=== PATIENT | female | born 1975 | race African-American/Black ===

== ENCOUNTER → 2016-11-08 | Outpatient (CLI) | payer BC ==
[~2016-11-08] MED LIST: CHOL20009 PO; FOLI1TAB7 PO; METR500T PO; OMEG10007 PO; PREN1TAB29 PO
[2016-11-08 13:23] LABS: HEMATOCRIT 39.4 % (37-47); MEAN CELL VOLUME 87.9 fL (80-100); MEAN CORPUSCULAR HEMOGLOBIN 30.1 pg (25-34); MEAN CORPUSCULAR HGB CONC 34.3 g/dl (32-36); MEAN PLATELET VOLUME 10.9 fL (7.4-10.4); PLATELET COUNT 258 K/uL (130-400); RED BLOOD COUNT 4.48 M/uL (4.2-5.4); WHITE BLOOD COUNT 5.89 K/uL (4.8-10.8)
--- NOTE | 2016-11-13 12:00 | CODING QUERY MEDICAL NECESSITY ---
SUPPORTING DIAGNOSIS NEEDED Dr. Salcedo, A supporting diagnosis is required for the test/procedure performed on this patient in order for us to be reimbursed by the patient's insurance. Please provide a supporting diagnosis for the following test/procedure listed below next to the test name along with your signature. *If there is no additional diagnosis for this patient that would support the following test/procedure please document that below next to the test/procedure. Test(s)/Procedure(s) that require a supporting diagnosis: * ([id number]) VITAMIN D ASSAY DIAGNOSIS: DATE OF SERVICE: 11/08/16 Provider Signature: Date: Thank you Stevan Braun [facility] Information Management Once completed, please kindly fax back to [phone] For questions please call [phone]
== END | disposition home or self-care (01) ==
LOC: C.LAB 11:28
PROVIDERS: ATTEND Specialist
DX: Z31.41 Encounter for fertility testing (principal); Z11.3 Encounter for screening for infections with a predominantly sexual mode of transmission; Z11.4 Encounter for screening for human immunodeficiency virus [HIV]; Z11.59 Encounter for screening for other viral diseases; Z13.0 Encounter for screening for diseases of the blood and blood-forming organs and certain disorders involving the immune mechanism; Z13.21 Encounter for screening for nutritional disorder

== ENCOUNTER → 2016-11-16 | Outpatient (CLI) | payer BC ==
--- NOTE | 2016-11-16 11:23 | DIAGNOSTIC IMAGING REPORT ---
HYSTEROSALPINGOGRAM HISTORY: Infertility. FLUOROSCOPY TIME: 0.2 minutes. 3 images submitted. TECHNIQUE: The cervix was cannulated by the case packer and sealer-dietitian consultant and water soluble contrast was instilled into the uterus under fluoroscopic guidance. Multiple spot images were obtained. FINDINGS: The uterine cavity is normal in size, shape, and position. The fallopian tubes are patent and there is free peritoneal spill bilaterally. IMPRESSION: Normal hysterosalpingogram. Electronically signed by: Ray Watkins M.D. 11/16/2016 11:22 AM Dictated Date/Time: 11/16/2016 11:21 AM
== END | disposition home or self-care (01) ==
LOC: C.RAD 10:35
PROVIDERS: ATTEND Obstetrics & Gynecology
DX: Z31.41 Encounter for fertility testing (principal)

== ENCOUNTER → 2016-12-11 | Outpatient (CLI) | payer BC | END | disposition home or self-care (01) | LOC: C.LAB1850 08:48 | PROVIDERS: ATTEND Obstetrics & Gynecology | DX: O09.299 Supervision of pregnancy with other poor reproductive or obstetric history, unspecified trimester (principal); Z3A.00 Weeks of gestation of pregnancy not specified ==

== ENCOUNTER → 2016-12-29 | Outpatient (CLI) | payer BC | END | disposition home or self-care (01) | LOC: C.LAB1850 13:32 | PROVIDERS: ATTEND Obstetrics & Gynecology | DX: O20.0 Threatened abortion (principal) ==

== ENCOUNTER → 2017-01-03 | Outpatient (CLI) | payer BC | END | disposition home or self-care (01) | LOC: C.LAB1850 11:33 | PROVIDERS: ATTEND Obstetrics & Gynecology | DX: O20.0 Threatened abortion (principal) ==

== ENCOUNTER 2017-01-23 07:23 | Day surgery (SDC) | payer BC ==
[2017-01-19 16:27] VITALS: BMI 19.0
--- NOTE | 2017-01-22 15:44 | HISTORY & PHYSICAL EXAMINATION ---
DATE OF ADMISSION: 01/23/2017 HISTORY: The patient presents for D&E for retained products of conception. The patient had a long course, but was eventually diagnosed with a missed AB. She eventually determined that she would take Cytotec as the measured only approximately 6 weeks. She underwent the Cytotec and she passed what appeared to be a sac, and her heavy bleeding stopped. Ultrasound shows that she likely has retained products of conception with an endometrium measuring 20.9 mm and very vascular and filled with debris. Ovaries are normal bilaterally. We discussed the options including expectant management, another attempt of Cytotec and D&E. I obtained the opinion of Dr. Padilla who recommended that she have a D&E. I also obtained the opinion of Dr. Salcedo from [facility], who also recommended that she have a D&E. The patient is now willing to proceed with D&E. She continues to have very minimal bleeding or cramping. PAST MEDICAL HISTORY: Significant for infertility, habitual miscarriage; but she is otherwise healthy, denying thyroid disease, asthma, heart disease, heart murmur, diabetes, kidney or liver problems. PAST SURGICAL HISTORY: Includes wisdom teeth removal and a surgically induced . FAMILY HISTORY: Noncontributory. SOCIAL HISTORY: The patient denies tobacco, alcohol or drug use. She has been accompanied to a revisit with the father of the baby. PHYSICAL EXAMINATION: GENERAL: This is a well-developed, well-nourished white female in no acute distress. VITAL SIGNS: Blood pressure 94/60, weight 114.6 pounds, height 5 feet 4.75 inches. NECK: Supple without thyromegaly or lymphadenopathy. CHEST: Clear to auscultation bilaterally. CARDIOVASCULAR: Regular rate and rhythm without murmurs, gallops or rubs. ABDOMEN: Soft, nontender, nondistended. BACK: Without costovertebral angle tenderness. EXTREMITIES: Benign. ASSESSMENT: This is a missed treated with Cytotec, that now has passed a sac but has likely retained products of conception. Given the risk of persistence and infection, both Dr. Padilla, Dr. Salcedo and I recommend she proceed with D&E. We did discuss the possibility of attempting Cytotec to see if the uterus would empty out further, she declines this. The risks of the surgery were discussed with patient including risks of anesthesia, bleeding requiring transfusion, infection, poor wound healing, damage to surrounding structures including bowel, bladder, vessels, nerves and ureters with need for further surgery, hospitalization or intervention. We discussed in detail the possibility of scarring resulting in Asherman syndrome as well as the 1% chance of uterine perforation with need for further surgery. The patient is quite concerned about these options limiting her fertility. I will be doing the procedure under ultrasound guidance so as to make sure that all tissue was removed to the best of my ability, so we do not need to do multiple procedures and additionally I will be very cautious with curettage and trying to prevent perforation. The patient does understand that both of these risks of this procedure and is willing to proceed. The other risks of surgery were discussed with patient including the risk of heart attack, blood clot, stroke or . Questions were asked and answered. Consent was reviewed and signed and we plan to proceed with surgery on Sunday, the .
[~2017-01-23] VITALS: Ht 166.4 cm; Wt 53.2 kg
[~2017-01-23 07:23] MED LIST changes: +DOXYCYCLINE HYCLATE 100 MG CAP PO SCH; +LACTATED RINGER'S 1000ML 1,000 ML IV SCH; -METR500T PO
[2017-01-23] MEDS ORDERED: MIDAZOLAM HCL 1 MG/ML 2ML VIAL ONE (07:37)
[2017-01-23] MEDS ORDERED: FENTANYL CITRATE INJ 50 MCG/1 ML 2 ML VIAL ONE (07:37)
[2017-01-23 08:08] VITALS: BP 110/61; PULSE 77; TEMP 36.6; O2SAT 100; Ht 166.4 cm; Wt 53.2 kg
--- NOTE | 2017-01-23 08:35 | History & Physical Bridge Note ---
H&P Re-Evaluation Bridge Note: I have examined the patient, reviewed the History & Physical and in the interval since the performance of the History & Physical I have noted the following changes of clinical significance: No changes noted
[2017-01-23] MEDS ORDERED: DEXAMETHASONE SOD INJ 4 MG/ML VIAL ONE (09:08)
[2017-01-23] MEDS ORDERED: LIDOCAINE HCL 2% 2 ML VIAL (20MG/ML) ONE (09:08)
[2017-01-23] MEDS ORDERED: ONDANSETRON INJ 2 MG/ML 2 ML VIAL ONE (09:08)
[2017-01-23] MEDS ORDERED: PROPOFOL IV EMULSION 10 MG/ML 20 ML VIAL IV ONE (09:08)
[2017-01-23] MEDS ORDERED: LACTATED RINGER'S 1000ML 1,000 ML IV SCH (09:18)
--- NOTE | 2017-01-23 09:18 | [facility] Post Operative Brief Note ---
Immediate Operative Summary Operative Date Jan 23, 2017. Pre-Operative Diagnosis Retained products of conception Post-Operative Diagnosis Same Procedure(s) Performed Dilation and Evacuation with Guided Ultrasound Surgeon Dr Harris Night Patrol Inspector Surgeon(s) none Estimated Blood Loss 50ml Findings uterus sounded to 6-7cm, pocs removed under ultrasound guidance. at the end of the procedure very thin lining of 4mm noted. Fluids (cc crystalloids) 800cc Specimens A. Products of conception B. endometrial lining currettings Drains none Anesthesia lma Complication(s) None Disposition Recovery Room / PACU
[2017-01-23] MEDS ORDERED: METR500T PO (09:21)
--- NOTE | 2017-01-23 09:22 | Discharge Instructions ---
Discharge Instructions Date of Service Jan 23, 2017. Visit Reason for Visit: Retained Products Of Conception Following Discharge Discharge Diagnosis / Problem: s/p dilation and evacuation of retained producted of conception. Discharge Goals Goal(s): Specific goals Activity Recommendations Activity Limitations: per Instructions/Follow-up section Anesthesia . Post Anesthesia Instructions: If you have had General Anesthesia or IV Sedation: * Do not drive today. * Resume driving when surgeon permits. * Do not make important decisions or sign legal documents today. * Call surgeon for: 1. Temperature elevations greater than 101 degrees F. 2. Uncontrollable pain. 3. Excessive bleeding. 4. Persistent nausea and vomiting. 5. Medication intolerance (nausea, vomiting or rash). * For nausea and vomiting use only clear liquids such as: tea, soda, bouillon until nausea subsides, then gradually increase diet as tolerated. * If you have any concerns or questions, call your surgeon's office. If physician is unavailable and it is an emergency, call 911 or go to the nearest emergency room. . Instructions / Follow-Up Instructions / Follow-Up ACTIVITY RECOMMENDATIONS: * Avoid tampons, douching, hot tubs, pools, and intercourse until bleeding has stopped. * May shower as usual. * No strenuous activity for 24-48 hours. After 24-48 hours, you may do anything you feel like doing (driving and sports are okay). SPECIAL CARE INSTRUCTIONS: Special Diet: * Mild nausea may occur in the immediate post-operative period. * Take clear liquids such as tea, cola or bouillon until all nausea has subsided; you may then resume your normal diet. Special Care: * Light bleeding and vaginal spotting can last from a few days to 3-4 weeks. Call your doctor if bleeding becomes heavier than the heaviest part of your period. * Check your temperature twice a day for one week. If it goes above 100.4 degrees Fahrenheit (38.0 Celsius), notify your doctor. * Call your doctor's office for an appointment for 4 weeks after your surgery. FOLLOW-UP VISIT: Call your doctor's office for an appointment for 4 weeks after your surgery. Diet Recommendations Recommended Home Diet: no limitations, resume previous diet Procedures Procedures Performed: Dilation and Evacuation with Guided Ultrasound Pending Studies Studies pending at discharge: no Medical Emergencies . Who to Call and When: Medical Emergencies: If at any time you feel your situation is an emergency, please call 911 immediately. . Non-Emergent Contact Non-Emergency issues call your: Advanced Practice Provider . . "Provider Documentation" section prepared by Rosalba Harris. .
[2017-01-23] MEDS ORDERED: IBUPROFEN 600 MG TAB PO PRN (09:30)
[2017-01-23] MEDS ORDERED: ACETAMINOPHEN 325 MG TAB PO PRN (09:30)
[2017-01-23] MEDS ORDERED: KETOROLAC TROMETHAMINE 30 MG/ML VIAL IV. PRN ×3 (09:30→09:45)
[2017-01-23] MEDS ORDERED: IBUPROFEN 200 MG TAB PO PRN (09:30)
[2017-01-23] MEDS ORDERED: ACETAMINOPHEN 650 MG SUPP PR PRN (09:30)
[2017-01-23] MEDS ORDERED: MoRPHine SULFATE 2 MG/ML CARP IV PRN ×2 (09:30)
[2017-01-23] MEDS ORDERED: OXYCODONE/ACETAMINOPHEN 5-325 TAB PO PRN ×2 (09:30)
[2017-01-23] MEDS ORDERED: MoRPHine SULFATE 4 MG/ML 1 ML CARP\\VIAL IV PRN (09:30)
--- NOTE | 2017-01-23 09:36 | OPERATIVE REPORT ---
DATE OF OPERATION: 01/23/2017 PREOPERATIVE DIAGNOSIS: Retained products of conception, status post Cytotec treatment of missed . POSTOPERATIVE DIAGNOSIS: Same. PROCEDURE: Dilation and evacuation. SURGEON: Rosalba Harris MD ANESTHESIA: General per laryngeal mask. ESTIMATED BLOOD LOSS: 50 mL. FLUIDS: 800 mL of IV fluids. URINE OUTPUT: Approximately 100 mL of clear yellow urine drained from the bladder at the end of the procedure. INDICATIONS FOR PROCEDURE: Eli is a 5, para 0-0-2-0 who had a missed AB. She underwent Cytotec for treatment, past the sac but unfortunately had retained products of conception, so presents for removal. FINDINGS: Uterus sounded to 6-7 cm. On ultrasound, there were retained products of conception noticed in the uterus and at the end of the procedure the lining which was quite thick prior to the procedure was now 4 mm. COMPLICATIONS: None. DRAINS: None. DISPOSITION: To recovery room in stable condition. DESCRIPTION OF PROCEDURE: The patient was taken to the operating room where she was identified verbally and by bracelet. She was placed in dorsal supine position on the operating table where general anesthesia was induced without difficulty. She was then placed in dorsal lithotomy position in [facility]-cane stirrups and prepped and draped in normal sterile fashion. Timeout was held identifying correct patient, procedure and positioning. The bladder was drained of urine and exam under anesthesia revealed an approximately 6-week size midline mobile uterus. The bladder was drained of urine. A weighted speculum was placed in the posterior vagina. The anterior lip of the cervix was grasped with a single tooth tenaculum. Uterus sounded to 6-7 cm, dilated to a #25 Heather dilator. We initially started with a 6 mm flexible suction curette. This was not really doing her job so we dilated to a #29 Hegar dilator and an 8 mm suction curette was placed to the uterus and then under direct visualization via ultrasound, the products of conception were removed until the lining appeared thin and measured at its thickest 4 mm. The procedure was thus then terminated after a gentle curettage was done to assure no further products removed. All instruments were then removed from the vagina. Hemostasis was noted to be excellent. All sponge, lap and needle counts were correct x2. The patient tolerated the procedure well and was taken to the recovery room in stable condition. I attest to the content of the Intraoperative Record and any orders documented therein. Any exception s are noted below.
[2017-01-23] MEDS ORDERED: FENTANYL CITRATE INJ 50 MCG/1 ML 2 ML VIAL IV PRN (09:45)
[2017-01-23] MEDS ORDERED: DOXYCYCLINE HYCLATE 100 MG CAP PO SCH (09:45)
[2017-01-23] MEDS ORDERED: ATROPINE SULFATE 0.1 MG/ML 5ML SYR IV PRN (09:45)
[2017-01-23] MEDS ORDERED: ONDANSETRON INJ 2 MG/ML 2 ML VIAL IV PRN (09:45)
--- NOTE | 2017-01-23 09:57 | Anesthesiology Progress Note ---
Anesthesia Post Op Note Date & Time Jan 23, 2017 at 09:57 Vital Signs Pain Intensity: 3 Vital Signs Past 12 Hours Date Time Temp Pulse Resp B/P (MAP) Pulse Ox O2 Delivery O2 Flow Rate FiO2 01/23/17 09:45 62 12 93/61 99 Room Air 01/23/17 09:35 62 12 94/56 100 Oxymask 10 01/23/17 09:25 62 12 95/56 100 Oxymask 10 01/23/17 09:18 36.9 62 12 89/51 100 Oxymask 10 01/23/17 08:08 36.6 77 16 110/61 (77) 100 Room Air Notes Mental Status: alert / awake / arousable, participated in evaluation Pt Amnestic to Procedure: Yes Nausea / Vomiting: adequately controlled Pain: adequately controlled Airway Patency, RR, SpO2: stable & adequate BP & HR: stable & adequate Hydration State: stable & adequate Anesthetic Complications: no major complications apparent
[2017-01-23 10:02] LABS: BASO % 0.4 %; BASO ABS # 0.02 K/uL (0-0.2); EOS % 2.2 %; HEMATOCRIT 34.2 % (37-47); LYMPH % 37.3 %; LYMPH ABS # 2.05 K/uL (1.2-3.4); MEAN CELL VOLUME 88.4 fL (80-100); MEAN CORPUSCULAR HEMOGLOBIN 30.5 pg (25-34); MEAN PLATELET VOLUME 11.5 fL (7.4-10.4); MONO % 8.7 %; NEUT % 51.4 %; PLATELET COUNT 235 K/uL (130-400); RED BLOOD COUNT 3.87 M/uL (4.2-5.4); WHITE BLOOD COUNT 5.49 K/uL (4.8-10.8)
[2017-01-23 10:04] LABS: COMPLETE YES; MEAN CORPUSCULAR HGB CONC 34.5 g/dl (32-36)
[2017-01-23 10:07] VITALS: BP 93/53; PULSE 58; TEMP 36.6; O2SAT 96
[2017-01-23 10:37] VITALS: BP 100/56; PULSE 56; O2SAT 98
[2017-01-23 11:07] VITALS: BP 100/61; PULSE 58; TEMP 36.5; O2SAT 99
== END 2017-01-23 11:07 | disposition home or self-care (01) ==
LOC: C.ACU 07:23
PROVIDERS: ATTEND Obstetrics & Gynecology
DX: O02.1 Missed abortion (principal)

== ENCOUNTER → 2017-02-28 | Outpatient (CLI) | payer BC ==
[~2017-02-28] MED LIST changes: -DOXYCYCLINE HYCLATE 100 MG CAP PO SCH; -LACTATED RINGER'S 1000ML 1,000 ML IV SCH
== END | disposition home or self-care (01) ==
LOC: C.LAB1850 11:55
PROVIDERS: ATTEND Specialist
DX: O09.00 Supervision of pregnancy with history of infertility, unspecified trimester (principal)

== ENCOUNTER → 2017-04-05 | Outpatient (CLI) | payer BC ==
[~2017-04-05] MED LIST changes: -FOLI1TAB7 PO; +FOLI1TAB8 PO
== END | disposition home or self-care (01) ==
LOC: C.LAB1850 10:15
PROVIDERS: ATTEND Specialist
DX: Z31.41 Encounter for fertility testing (principal); O09.00 Supervision of pregnancy with history of infertility, unspecified trimester; Z3A.00 Weeks of gestation of pregnancy not specified

== ENCOUNTER → 2017-06-07 | Outpatient (CLI) | payer OTHER | END | disposition home or self-care (01) | LOC: C.LAB1850 10:17 | PROVIDERS: ATTEND Specialist | DX: Z31.41 Encounter for fertility testing (principal); O09.00 Supervision of pregnancy with history of infertility, unspecified trimester ==

== ENCOUNTER → 2017-06-13 | Outpatient (CLI) | payer OTHER | END | disposition home or self-care (01) | LOC: C.LAB1850 09:19 | PROVIDERS: ATTEND Specialist | DX: Z31.41 Encounter for fertility testing (principal) ==

== ENCOUNTER → 2017-06-14 | Outpatient (CLI) | payer OTHER | END | disposition home or self-care (01) | LOC: C.LAB1850 11:23 | PROVIDERS: ATTEND Specialist | DX: Z31.41 Encounter for fertility testing (principal) ==

== ENCOUNTER → 2017-07-20 | Outpatient (CLI) | payer OTHER | END | disposition home or self-care (01) | LOC: C.LAB1850 08:24 | PROVIDERS: ATTEND Specialist | DX: Z31.41 Encounter for fertility testing (principal); O09.00 Supervision of pregnancy with history of infertility, unspecified trimester ==

== ENCOUNTER → 2017-08-03 | Outpatient (CLI) | payer OTHER | END | disposition home or self-care (01) | LOC: C.LAB1850 10:59 | PROVIDERS: ATTEND Specialist | DX: N97.9 Female infertility, unspecified (principal) ==

== ENCOUNTER → 2017-08-28 | Outpatient (CLI) | payer OTHER | END | disposition home or self-care (01) | LOC: C.LABBC 07:46 | PROVIDERS: ATTEND Specialist | DX: O09.00 Supervision of pregnancy with history of infertility, unspecified trimester (principal); Z3A.00 Weeks of gestation of pregnancy not specified ==

== ENCOUNTER → 2017-11-06 | Outpatient (CLI) | payer OTHER | END | disposition home or self-care (01) | LOC: C.LAB1850 08:48 | PROVIDERS: ATTEND Specialist | DX: Z31.41 Encounter for fertility testing (principal) ==

== ENCOUNTER → 2017-11-19 | Outpatient (CLI) | payer OTHER ==
[2017-11-19 13:48] LABS: HEP C IGG 13 YRS+OLDER_RFLX NEG (NEG)
== END | disposition home or self-care (01) ==
LOC: C.LABBC 11:09
PROVIDERS: ATTEND Specialist
DX: Z11.3 Encounter for screening for infections with a predominantly sexual mode of transmission (principal); Z11.4 Encounter for screening for human immunodeficiency virus [HIV]; Z11.59 Encounter for screening for other viral diseases

== ENCOUNTER → 2017-12-06 | Outpatient (CLI) | payer OTHER | END | disposition home or self-care (01) | LOC: C.LAB1850 08:39 | PROVIDERS: ATTEND Specialist | DX: O09.00 Supervision of pregnancy with history of infertility, unspecified trimester (principal); Z3A.00 Weeks of gestation of pregnancy not specified ==

== ENCOUNTER → 2017-12-10 | Outpatient (CLI) | payer OTHER | END | disposition home or self-care (01) | LOC: C.LABBC 08:37 | PROVIDERS: ATTEND Specialist | DX: O09.00 Supervision of pregnancy with history of infertility, unspecified trimester (principal); Z3A.00 Weeks of gestation of pregnancy not specified ==

== ENCOUNTER 2018-08-16 07:37 | Inpatient (IN) ==
[2018-08-16] MEDS ORDERED: OXYTOCIN 30 UNITS/500 ML BAG IV PRN ×2 (08:18→08:23)
[2018-08-16] MEDS ORDERED: LACTATED RINGER'S 1,000 ML IV PRN ×3 (08:18→17:13)
--- NOTE | 2018-08-16 08:40 | History & Physical Report ---
Date of Service August 16, 2018 Assessment & Plan (1) Encounter for induction of labor: Ms. Chapman is a 43yo with IOL at 40.5 weeks for postdates. IVF , Advanced maternal age. GBS- -Pitocin, NPO/clears, fluids -Anticipate History of Present Illness Chief Complaint: Induction of labor Primary Care Provider: Mercedes [place] MD Ms. Chapman is a 43yo with IOL at 40.5 weeks for postdates. SAMSON of 08/11 by 1st trimester US. complicated by AMA, IVF. Weekly NSTs and AFIs from 36 weeks, with 1 episode of a prolonged decel requiring hospital monitoring on 08/12. O+, Antibody NEGATIVE. Rubella immune, HbsAg NEGATIVE, HIV-. 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; 1st attempt unsuccessful Therapeutic 2004;2011 Therapeutic in second trimester 2016;multiple cardiac anomalies [place] teeth removed Surgical History History of colposcopy 2004 Social History Preferred Language: Macanese Communication Ability: Effective Beliefs That Will Affect Care: None marital status: Single Current Living Situation: Alone Other Information That Helps Us Care for You: No Feels Safe at Home: Yes Safety Concerns: Feels Safe At This Time Smoking Status: Never smoker Hx Alcohol Use: No Hx Substance Use: No Review of Systems no fever and no chills no dyspnea no chest pain, no palpitations, no edema and no calf pain no nausea and no vomiting no headache(s) Physical Exam Respiratory: normal respiratory effort, lungs clear to auscultation Cardiovascular: Rate/Rhythm: regular rate and regular rhythm Genitourinary: OB Exam Abdomen: + fundal height, + vertex and + posterior Manual OB Exam: + cervical dilation (Exam done by Dr. Chaputa-Hess) 3 cm, + cervical effacement 60% and + station -1 Results & Data Vital Signs (Past 12 Hours) Vital Signs Temp Pulse Resp BP 08/16/18 07:47 36.7 C 82 20 123/76 08/16/18 07:44 82 123/76 Laboratory Results Laboratory Results - last 24 hr 08/16/18 08:47 WBC 11.93 H RBC 3.74 L Hgb 11.9 L Hct 33.2 L MCV 88.8 MCH 31.8 MCHC 35.8 RDW Std Deviation 42.9 RDW Coeff of Jake 13.2 Plt Count 178 MPV 12.1 H Medications Administered Home Medications PNV cmb#95-ferrous fumarate-FA [] 1 tab PO DAILY 08/12/18 [History Confirmed 08/15/18] folic acid 1 mg PO TID 08/12/18 [History Confirmed 08/15/18] omega 1-mrx-dvg-fish oil [Fish Oil] 1 cap PO DAILY 08/12/18 [History Confirmed 08/15/18] Active Medications Lactated Ringer's (Lr) 1,000 mls @ 999 mls/hr IV .Q1H1M PRN PRN Reason: Pre-Anesthesia Stop: 09/15/18 08:17 Lactated Ringer's (Lr) 1,000 mls @ 125 mls/hr IV .Q8H INDY Stop: 08/18/18 08:29 Last Admin: 08/16/18 09:14 Dose: 125 mls/hr Documented by: Oxytocin (Pitocin) 30 units in 500 mls @ 333.333 mls/hr IV .Q1H30M PRN; Protocol PRN Reason: Bleeding Control Stop: 09/15/18 08:17 Lactated Ringer's (Lr) 1,000 mls @ 999 mls/hr IV .Q1H1M PRN PRN Reason: Tachysystole Stop: 08/18/18 08:22 Oxytocin (Pitocin) 30 units in 500 mls @ 1 mls/hr IV .Q24H PRN; Protocol PRN Reason: Labor Induction/Augmentation Stop: 08/18/18 08:22 Last Admin: 08/16/18 09:15 Dose: 0.06 units/hr, 1 mls/hr Documented by: Supervising Physician Co-Signing Physician Notes Resident Physician Supervision Note: I have seen and examined the patient. I discussed the case with the resident and agree with the findings and plan as documented in the note. Any exceptions or clarifications are listed here: 43yo @ 40 08/20 for IOL for postdates. is IVF conception, donor egg/sperm. Hassan balloon last night, will give pitocin and plan for AROM when head well applied. Documented By: DO MAHIN Younger
[2018-08-16 08:58] LABS: Hematocrit (blood only) 33.2 % (37-47); Hemoglobin 11.9 g/dL (12.0-16.0); Mean Corpuscular Volume 88.8 fL (80-100); Mean Platelet Volume 12.1 fL (7.4-10.4); Platelet Count 178 K/uL (130-400); RDW Coefficient of Variation 13.2 % (11.5-14.5); RDW Standard Deviation 42.9 fL (36.4-46.3); Red Blood Count 3.74 M/uL (4.2-5.4); White Blood Count 11.93 K/uL (4.8-10.8)
[2018-08-16 08:59] LABS: Mean Corpuscular Hgb Conc 35.8 g/dL (32-36)
[2018-08-16] MEDS: LACTATED RINGER'S 1,000 ML IV SCH ×2 (09:14→20:57)
--- NOTE | 2018-08-16 13:57 | Obstetrical Progress Note ---
Date of Service August 16, 2018 Subjective Comfortable. Attempted AROM, cervix 80/-3. Head felt too high - will continue pitocin to bring head down into pelvis prior to AROM. FHT Cat 1. [place] Q2. Results & Data Vital Signs (Past 12 Hours) Vital Signs Temp Pulse Resp BP 08/16/18 12:30 18 08/16/18 12:04 97.9 F 67 20 118/71 08/16/18 10:40 89 20 129/75 08/16/18 07:47 98.1 F 82 20 123/76 08/16/18 07:44 82 123/76
[2018-08-16] MEDS ORDERED: BUPIVACAINE 0.25% 30 ML VIAL ONE (15:43)
[2018-08-16] MEDS ORDERED: fentaNYL citrate 100 MCG/2 ML VIAL ONE (15:43)
[2018-08-16] MEDS ORDERED: ePHEDrine sulfate 50 MG/ML AMP ONE (15:43)
[2018-08-16] MEDS ORDERED: fentaNYL 2MCG/ML ROPIV 1.25MG/ML 100 ML BAG EPI ONE (15:44)
--- NOTE | 2018-08-16 16:00 | Anesthesiology Consultation ---
Date of Service August 16, 2018 Assessment & Plan (1) Term : Chart Review Chart Review: Acceptable Risk for Labor Epidural History Height/Weight Height: 5 ft 5 in Weight: 146 kg Allergies Allergy/AdvReac Type Severity Reaction Status Date / Time No Known Allergies Allergy Verified 08/16/18 09:38 Medications Home Medications Medication Instructions Recorded Confirmed Last Taken PNV cmb#95-ferrous fumarate-FA 1 tab PO DAILY 08/12/18 08/16/18 08/16/18 07:30 [] folic acid 1 mg PO TID 08/12/18 08/16/18 08/16/18 07:30 omega 5-jiv-ifs-fish oil [Fish Oil] 1 cap PO DAILY 08/12/18 08/16/18 08/16/18 07:30 Active Medications Generic Name Dose Route Start Last Admin Trade Name Freq PRN Reason Stop Dose Admin Lactated Ringer's 1,000 mls @ 999 mls/hr 08/16/18 08:18 08/16/18 15:52 Lr IV 09/15/18 08:17 999 mls/hr .Q1H1M PRN Administration Pre-Anesthesia Lactated Ringer's 1,000 mls @ 125 mls/hr 08/16/18 08:30 08/16/18 15:53 Lr IV 08/18/18 08:29 Infused .Q8H INDY Infusion Oxytocin 30 units in 500 mls @ 9 mls/hr 08/16/18 08:23 08/16/18 13:45 Pitocin IV 08/18/18 08:22 0.54 units/hr .Q24H PRN 9 mls/hr Labor Induction/Augmentation Titration Protocol 0.54 UNITS/HR Past Medical History Medical History 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
[2018-08-16] MEDS ORDERED: NALOXONE HCL 0.4 MG/1 ML VIAL/CARP IV PRN (17:13)
[2018-08-16] MEDS ORDERED: ePHEDrine sulfate 50 MG/ML AMP IV PRN (17:13)
[2018-08-16] MEDS ORDERED: fentaNYL 2MCG/ML ROPIV 1.25MG/ML 100 ML BAG EPI PRN (17:13)
[2018-08-16] MEDS ORDERED: NALOXONE HCL 1 MG in SODIUM CHLORIDE 0.9% 1000ML 1,000 ML IV PRN (17:13)
--- NOTE | 2018-08-16 17:53 | Obstetrical Progress Note ---
Date of Service August 16, 2018 Subjective Comfortable with epidural. FHT Cat 1, [place] Q 2 SVE 4/90/-2 AROM clear fluid Results & Data Vital Signs (Past 12 Hours) Vital Signs Temp Pulse Resp BP Pulse Ox 08/16/18 17:51 72 112/70 08/16/18 17:49 71 100 08/16/18 17:46 92 H 113/64 08/16/18 17:44 94 H 100 08/16/18 17:42 94 H 117/79 08/16/18 17:39 85 100 08/16/18 17:36 90 116/77 08/16/18 17:34 88 100 08/16/18 17:33 78 111/71 08/16/18 17:29 85 100 08/16/18 17:26 82 105/67 08/16/18 17:24 73 100 08/16/18 17:21 75 111/64 08/16/18 17:19 76 100 08/16/18 17:17 79 108/63 08/16/18 17:14 77 100 08/16/18 17:13 80 110/65 08/16/18 17:09 79 100 08/16/18 17:06 84 114/59 L 08/16/18 17:04 86 100 08/16/18 17:03 76 108/62 08/16/18 16:59 81 100 08/16/18 16:57 89 129/60 08/16/18 16:56 87 92 08/16/18 16:54 86 100 08/16/18 16:52 78 104/55 L 08/16/18 16:49 85 100 08/16/18 16:47 73 102/52 L 08/16/18 16:44 74 100 08/16/18 16:42 74 92/59 L 08/16/18 16:39 78 100 08/16/18 16:37 72 109/54 L 08/16/18 16:34 77 100 08/16/18 16:32 77 111/53 L 08/16/18 16:29 73 100 08/16/18 16:25 98.1 F 70 22 103/54 L 08/16/18 16:24 74 100 08/16/18 16:23 71 111/54 L 08/16/18 16:21 71 102/53 L 08/16/18 16:19 73 110/56 L 100 08/16/18 16:16 69 123/70 08/16/18 16:14 74 100 08/16/18 16:09 81 100 08/16/18 16:04 81 100 08/16/18 12:30 18 08/16/18 12:04 97.9 F 67 20 118/71 08/16/18 10:40 89 20 129/75 08/16/18 07:47 98.1 F 82 20 123/76 08/16/18 07:44 82 123/76
[2018-08-16] MEDS ORDERED: ONDANSETRON INJ 2 MG/ML 2 ML VIAL IV PRN (19:10)
--- NOTE | 2018-08-17 01:11 | Procedure Note ---
Vaginal Delivery Summary Date of Service August 17, 2018 Vaginal Delivery Summary Predelivery diagnoses: 43yo @ 40 5/7, post-dates , advanced maternal age, conception by IVF Postdelivery diagnoses: same + avulsion of umbilical cord Procedure: Spontaneous vaginal delivery, manual extraction of placenta, collection of cord blood for private banking Surgeon: Anna Wright DO Complications: None Estimated blood loss: 400ml Findings: Viable female , Apgars 8/9. Weight pending, please see nursery records. Description of delivery: The patient progressed to complete dilation with epidural anesthesia. She then began to push. She spontaneously vaginally deli nae a viable from the cephalic presentation. The head delivered in left occiput position. The anterior shoulder delivered, followed by the posterior shoulder, followed by the body. The baby was placed on mother's abdomen, a spontaneous cry was heard. Delayed cord clamping was employed, and the cord was doubly clamped and cut. Cord blood was obtained. Delivery of the placenta was attempted, however the umbilical cord avulsed. Therefore, the placenta was delivered via manual extraction. Pitocin was given, the uterus became firm. The uterus and vagina were swept of all clots and debris. Cervix, vagina, perineum were inspected and a first degree perineal laceration was noted, and hemostatic. Patient did not desire repair. At the conclusion of the delivery, sponge, instrument counts were correct x2. Mother and baby tolerated delivery well and are recovering in the room in stable good condition.
[2018-08-17] MEDS ORDERED: SUPERCREAM 0.870% 15 GM JAR EXT PRN (01:37)
[2018-08-17] MEDS ORDERED: DIPHTHERIA/TETANUS/PERTUSSIS 0.5 ML SYR/VIAL IM ONE (01:37)
[2018-08-17] MEDS ORDERED: OXYTOCIN 30 UNITS/500 ML BAG IV PRN (01:37)
[2018-08-17] MEDS ORDERED: BENZOCAINE 20% AER SPR 82.5 GM CAN EXT PRN (01:37)
[2018-08-17] MEDS ORDERED: ACETAMINOPHEN 325 MG TAB PO PRN (01:37)
[2018-08-17] MEDS ORDERED: BISACODYL 10 MG SUPP PR PRN (01:37)
[2018-08-17] MEDS ORDERED: IBUPROFEN 600 MG TAB PO PRN (01:37)
[2018-08-17] MEDS ORDERED: OXYCODONE/ACETAMINOPHEN 5mg/325mg TAB PO PRN (01:37)
[2018-08-17] MEDS ORDERED: HYDROCORTISONE ACETATE 25 MG SUPP PR PRN (01:37)
[2018-08-17] MEDS: CEFAZOLIN 1000MG 1,000 MG/7.5 ML SYR IV SCH ×3 (02:15→18:55)
--- NOTE | 2018-08-17 06:19 | Obstetrical Progress Note ---
Date of Service <Cassi Lilly MD - Last Filed: 08/17/18 06:21> August 17, 2018 Assessment & Plan <Cassi Lilly MD - Last Filed: 08/17/18 06:21> (1) care following vaginal delivery: Ms. Chapman is a 43yo with IOL at 40.5 weeks for postdates with an IVF . PPD #1 -Routine care -Ambulation encouraged -Pain control Subjective <Cassi Lilly MD - Last Filed: 08/17/18 06:21> Ambulation: limited ambulation Diet Tolerance:: regular diet Lochia:: Moderate Feeding Type:: breast feeding Respiratory: no dyspnea Cardiovascular: no chest pain, no edema and no calf pain Physical Exam <Cassi Lilly MD - Last Filed: 08/17/18 06:21> Vital Signs (Past 24 Hours) Last Vital Signs Temp 36.9 C 08/17/18 03:05 Pulse 74 08/17/18 03:05 Resp 16 08/17/18 03:05 BP 117/70 08/17/18 03:05 Pulse Ox 96 08/17/18 03:05 Respiratory normal respiratory effort, lungs clear to auscultation Cardiovascular Rate/Rhythm: regular rate and regular rhythm Extremities: no calf tenderness and no pedal edema Genitourinary OB Exam Abdomen: + fundal height Fundus: + firm and + relation to umbilicus (at umbilicus) Results & Data <Cassi Lilly MD - Last Filed: 08/17/18 06:21> Laboratory Results Laboratory Results - last 24 hr 08/16/18 08:47 WBC 11.93 H RBC 3.74 L Hgb 11.9 L Hct 33.2 L MCV 88.8 MCH 31.8 MCHC 35.8 RDW Std Deviation 42.9 RDW Coeff of Jake 13.2 Plt Count 178 MPV 12.1 H Medications Administered Home Medications PNV cmb#95-ferrous fumarate-FA [] 1 tab PO DAILY 08/12/18 [History Confirmed 08/16/18] folic acid 1 mg PO TID 08/12/18 [History Confirmed 08/16/18] omega 5-awn-tjb-fish oil [Fish Oil] 1 cap PO DAILY 08/12/18 [History Confirmed 08/16/18] Active Medications Acetaminophen (Tylenol) 650 mg PO Q6H PRN PRN Reason: Pain/CROCKER/Fever Stop: 09/16/18 01:36 Benzocaine (Dermoplast Pain Relieving [place]) 1 appln EXT PRN PRN PRN Reason: Perineal Discomfort Stop: 09/16/18 01:36 Last Admin: 08/17/18 02:14 Dose: 1 appln Documented by: Bisacodyl (Dulcolax) 5 mg PO 1999 [facility] Stop: 08/17/18 20:01 Bisacodyl (Dulcolax) 10 mg OR DAILY PRN PRN Reason: No BM on 2nd post- day Stop: 09/16/18 01:36 Cocaine HCl (Supercream 0.870%) 1 gm EXT BID PRN PRN Reason: Hemorrhoidal Inflammation Stop: 08/31/18 01:36 Docusate Sodium (Colace) 100 mg PO BID [facility] Stop: 09/16/18 08:59 Hydrocortisone (Anusol Hc) 25 mg OR BID PRN PRN Reason: Hemorrhoidal Inflammation Stop: 09/16/18 01:36 Oxytocin (Pitocin) 30 units in 500 mls @ 333.333 mls/hr IV .Q1H30M PRN; Protocol PRN Reason: Bleeding Control Stop: 09/16/18 01:36 Cefazolin Sodium (Ancef 1000mg) 1,000 mg in 7.5 mls @ 2.5 mls/min IV Q8H [facility] Stop: 08/17/18 18:02 Last Admin: 08/17/18 02:15 Dose: 2.5 mls/min Documented by: Ibuprofen (Motrin) 600 mg PO Q4H PRN PRN Reason: Pain/CROCKER/Cramping/Fever Stop: 09/16/18 01:36 Oxycodone/Acetaminophen (Percocet 5mg/325mg) 1 tab PO Q4H PRN PRN Reason: Pain not relieved by... Stop: 08/31/18 01:36 Prenat Multivit/[place]/Iron/Folic Ac ( Vitamin) 1 tab PO QAM [facility] Stop: 09/16/18 08:59 <Anna Wright, - Last Filed: 08/17/18 06:37> Co-Signing Physician Notes Resident Physician Supervision Note: I was present with the resident physician during the history and exam. I discussed the case with the resident and agree with the findings and plan as documented in the note. Any exceptions or clarifications are listed here: PPD#1 doing well. Continue routine care. Documented By: DO MAHIN Younger
--- NOTE | 2018-08-17 07:38 | Anesthesia Procedure Note ---
Date of Service August 17, 2018 Anesthesia Post Epidural Note Vital Signs Vital Signs: Temp Pulse Resp BP Pulse Ox 36.9 C 74 16 117/70 96 08/17/18 03:05 08/17/18 03:05 08/17/18 03:05 08/17/18 03:05 08/17/18 03:05 Pain Intensity Bilateral Abdomen: Pain Intensity: 0 Back: Pain Intensity: 1 Notes Mental Status: alert / awake / arousable Patient Amnestic to Procedure: No Nausea / Vomiting: adequately controlled Pain: adequately controlled Airway Patency, RR, SpO2: stable & adequate BP & HR: stable & adequate Hydration State: stable & adequate Anesthetic Complications: no major complications apparent Epidural: Removed without complications and With tip intact Notes: Doing well, no complaints. Has been OOB, tolerating PO. Epidural site looks dry and clean without signs of edema or erythema.
[2018-08-17 08:10] LABS: Hematocrit (blood only) 31.1 % (37-47); Hemoglobin 11.1 g/dL (12.0-16.0)
[2018-08-17] MEDS: DOCUSATE SODIUM 100 MG CAP PO SCH ×2 (08:41→20:35)
[2018-08-17] MEDS: PRENATAL VITAMIN 1 TAB PO SCH (08:41)
[2018-08-17] MEDS ORDERED: BISACODYL 5 MG TABEC PO SCH (20:00)
[2018-08-18 00:24] VITALS: O2SAT 97
--- NOTE | 2018-08-18 08:01 | Obstetrical Progress Note ---
Date of Service August 18, 2018 Assessment & Plan (1) care following vaginal delivery: - doing well - desires d/c - instructions given - f/u in 6 weeks Subjective Ambulation: ambulating normally Voiding: no voiding problems Feeding Type:: breast feeding Physical Exam Vital Signs (Past 24 Hours) Last Vital Signs Temp 98.1 F 08/17/18 23:15 Pulse 76 08/17/18 23:15 Resp 20 08/17/18 23:15 BP 109/63 08/17/18 23:15 Pulse Ox 97 08/17/18 23:15 Gastrointestinal (Abdomen) Fundus firm below U Genitourinary (-) deep calf tenderness
[2018-08-18] MEDS: PRENATAL VITAMIN 1 TAB PO SCH (08:55)
[2018-08-18] MEDS: DOCUSATE SODIUM 100 MG CAP PO SCH (08:55)
[2018-08-18 10:58] VITALS: BP 112/64; PULSE 75; TEMP 97.9
== END 2018-08-18 13:20 | disposition home or self-care (01) | DRG 807 ==
LOC: 4S1 07:37 → 4S2 08-17 01:39

== ENCOUNTER 2022-05-15 21:40 | Inpatient (IN) ==
[2022-05-15] MEDS ORDERED: LACTATED RINGER'S 1,000 ML IV PRN (22:10)
[2022-05-15] MEDS ORDERED: OXYTOCIN 30 UNITS/500 ML BAG IV PRN (22:10)
[2022-05-15] MEDS ORDERED: LIDOCAINE 1% LOCAL 20 ML VIAL INFIL PRN (22:10)
--- NOTE | 2022-05-15 22:28 | History & Physical Report ---
Date of Service May 15, 2022 Assessment & Plan (1) SROM (spontaneous rupture of membranes): (2) Normal labor and delivery: Plan admit, iv, labs. desires epidural. fhts categ1. History of Present Illness Chief Complaint: leaking fluid Primary Care Provider: Mercedes Lima MD 47yo at 38+wks egcristy presents to L&D with srom at 2030 and regular ctx. No vb. +FM. Regular ctx PNC c/b 1. h/o low lying placenta, resolved 2. AMA 3. H/o abnl afp, normal sravanthi us 4. IVF/ICSI, normal growth us PNL RH pos, RI, GBS neg. Allergies Allergy/AdvReac Type Severity Reaction Status Date / Time No Known Drug Allergies Allergy Verified 05/09/22 08:56 Home Medications Medication Instructions Recorded Confirmed Type vit no.95-ferrous 1 tab PO DAILY 08/12/18 05/15/22 History fumarate 28 mg-folic acid 800 mcg tablet () omega-3 fatty acids [Fish Oil PO 04/29/20 05/09/22 History Concentrate] folic acid 1 mg tablet 1 mg PO DAILY #90 tabs 07/29/21 05/15/22 Rx ferrous sulfate 325 mg (65 mg 325 mg PO DAILY 05/15/22 05/15/22 History iron) tablet (iron) Patient History Medical History (Updated 05/15/22 @ 23:44 by Linda Christie MD, FACOG) AMA (advanced maternal age) multigravida 35+ Elderly primigravida Encounter for induction of labor care following vaginal delivery resulting from in vitro fertilization in third trimester resulting from in-vitro fertilization times 2; 1st attempt unsuccessful Term Therapeutic 2004;2011 Therapeutic in second trimester 2016;multiple cardiac anomalies Unfavorable cervix in term Surgical History History of colposcopy 2004 [place] teeth removed Family History Father Hypertension Afib Mother Diabetes Denies family history of Ovarian cancer Breast cancer Colorectal cancer Social History (Updated 11/01/21 @ 07:46 by Brinda Walters) Smoking Status: Never smoker Hx Alcohol Use: No Hx Substance Use: No Preferred Language: Faroese Communication Ability: Effective Parish Visitor Required: No Beliefs That Will Affect Care: None marital status: Single marital status details: Lars (36) [phone] Current Living Situation: Significant Other Current Living Situation Comment: daughterLars current occupational status: employed current occupation: Professor at [employer] Other Information That Helps Us Care for You: No Feels Safe at Home: Yes Safety Concerns: Feels Safe At This Time Assistive Devices: Contacts Review of Systems as per Subjective / HPI Physical Exam Constitutional: WD/WN, vitals as above Respiratory: normal respiratory effort, lungs clear to auscultation Cardiovascular: Rate/Rhythm: regular rate and regular rhythm Gastrointestinal (Abdomen): soft gravid nt Musculoskeletal: no edema nontender calves Neurologic: grossly normal Psychiatric: A+Ox3, euthymic affect Genitourinary: Manual OB Exam: + cervical dilation 3 cm, + cervical effacement 80% and + station -2 OB Exam Monitor Tracing: + external FHT monitor used, + external uterine monitor used, + category I, + normal FHT variability and + early decelerations present Results & Data ([facility]) Vital Signs (Past 12 Hours) Vital Signs Temp Pulse Resp BP 05/15/22 21:57 98.1 F 72 20 116/66 Coding Level of Care Code None Diagnoses SROM (spontaneous rupture of membranes) Normal labor and delivery O80
[2022-05-15] MEDS ORDERED: fentaNYL citrate 100 MCG/2 ML VIAL ONE (22:30)
[2022-05-15] MEDS ORDERED: SODIUM CHLORIDE 0.9% INJ 10 ML VIAL ONE (22:30)
[2022-05-15] MEDS ORDERED: LIDOCAINE 2%/EPINEPHRINE 1:200,000 20 ML SDV ONE (22:30)
[2022-05-15] MEDS ORDERED: ePHEDrine sulfate 50 MG/ML AMP ONE (22:30)
[2022-05-15] MEDS ORDERED: BUPIVACAINE 0.25% 30 ML VIAL ONE (22:30)
[2022-05-15] MEDS ORDERED: fentaNYL 2MCG/ML ROPIVACAINE 1.25MG/ML 100 ML BAG EPI ONE (22:31)
[2022-05-15] MEDS ORDERED: IBUPROFEN 600 MG TAB PO ONE (23:25)
--- NOTE | 2022-05-15 23:47 | Delivery Summary ---
Vaginal Delivery Summary Date of Service May 15, 2022 Vaginal Delivery Summary and 2nd Degree LAC The patient dilated rapidly to complete and pushed to deliver a viable female Apgars 8 and 9 via over 2nd degree perineal laceration from ROP position. Mouth and nose bulb suctioned at perineum. Shoulders and body delivered with ease. was vigorous and crying at . Cord clamped at 30 seconds of life and infant to maternal abdomen where the cord was then doubly clamped and cut. Placenta delivered spontaneously and intact, three-vessel cord. Hemostasis achieved with dilute pitocin and uterine massage. Laceration repaired in layers with 3-0 vicryl after 1% local lidocaine anesthesia. Cervix and sulci intact. EBL 300 cc. Mother and baby stable in recovery. [facility] Vaginal Delivery Charge Delivery Type Details: and 2nd Degree LAC
[2022-05-16 00:10] LABS: Hematocrit (blood only) 30.8 % (37.0-47.0); Hemoglobin 10.9 g/dl (12.0-16.0); Mean Corpuscular Hemoglobin 31.2 pg (25.0-34.0); Mean Corpuscular Hgb Conc 35.4 g/dL (32.0-36.0); Mean Corpuscular Volume 88.3 fL (80.0-100.0); Mean Platelet Volume 11.5 fL (9.4-12.4); Platelet Count 164 K/uL (130-400); RDW Coefficient of Variation 12.6 % (11.5-14.5); RDW Standard Deviation 40.4 fL (36.4-46.3); Red Blood Count 3.49 M/uL (4.20-5.40); White Blood Count 13.62 K/ul (4.8-10.8)
[2022-05-16] MEDS ORDERED: BENZOCAINE 20% AER SPR 82.5 GM CAN EXT PRN (00:11)
[2022-05-16] MEDS ORDERED: OXYTOCIN 20 UNITS in LACTATED RINGER'S 1,000 ML IV SCH (00:11)
[2022-05-16] MEDS ORDERED: DIPHTHERIA/TETANUS/PERTUSSIS 0.5mL SYR/VIAL (Age 7+yrs) IM ONE (00:11)
[2022-05-16] MEDS ORDERED: OXYTOCIN 30 UNITS/500 ML BAG IV PRN (00:11)
[2022-05-16] MEDS ORDERED: HYDROCORTISONE ACETATE 25 MG SUPP PR PRN (00:11)
[2022-05-16] MEDS ORDERED: oxyCODONE/ACETAMINOPHEN 5mg/325mg TAB PO PRN (00:11)
[2022-05-16] MEDS: ACETAMINOPHEN 325 MG TAB PO PRN ×2 (01:49→02:11)
[2022-05-16] MEDS: IBUPROFEN 600 MG TAB PO PRN ×4 (04:39→23:32)
--- NOTE | 2022-05-16 06:45 | Obstetrical Progress Note ---
Date of Service <Dena FryeOlivier Gould DO - Last Filed: 05/16/22 07:23> May 16, 2022 Assessment & Plan <Dena GouldDO - Last Filed: 05/16/22 07:23> (1) Status post vaginal delivery: continue OOB, ambulation, diet as tolerated <Linda Christie MD, FACOG - Last Filed: 05/16/22 07:48> (1) Status post vaginal delivery: Day #:: 1 Subjective <Dena S. DO Luis Fernando - Last Filed: 05/16/22 07:23> Eli is a 47 y/o female [id number] is now PPD # 1 following spontaneous vaginal delivery at 38 5/7 weeks. Reports feeling well overall this morning. Mild abdominal cramping pain well managed on analgesics. Voiding, but doesn't feel she is emptying bladder. Tolerating meals overnight and able to ambulate some. Some persistent lochia with some improvement this morning. . Review of Systems As per above Physical Exam <Dena SOlivier Gould DO - Last Filed: 05/16/22 07:23> General: Alert, oriented. No acute distress. Cardiac: Regular rate and rhythm, no murmurs/rubs/gallops. Respiratory: Clear to auscultation bilaterally a/p, no wheezes/rales/rhonchi. No increased work of breathing. Symmetrical chest rise. No respiratory distress. Uterus: Uterine fundus firm, palpable 2 cm below umbilicus. Lower Extremities: No lower extremity edema or swelling. No deep calf pain. Results & Data ([facility]) <Dena FryeOlivier Gould DO - Last Filed: 05/16/22 07:23> Vital Signs (Past 12 Hours) Vital Signs Temp Pulse Pulse Resp BP BP Pulse Ox 05/16/22 04:36 36.8 C 66 20 106/70 98 05/16/22 01:35 36.8 C 65 20 99/57 L 100 05/16/22 01:09 18 05/16/22 00:41 18 05/16/22 00:11 18 05/15/22 23:56 18 05/15/22 23:41 20 05/15/22 23:26 20 05/15/22 23:12 18 05/16/22 01:09 67 121/57 L 05/16/22 00:41 71 109/55 L 05/16/22 00:26 68 116/61 05/16/22 00:11 73 115/58 L 05/15/22 23:56 72 05/15/22 23:56 117/77 05/15/22 23:41 76 05/15/22 23:41 114/67 05/15/22 23:26 80 05/15/22 23:26 107/58 L 05/15/22 23:12 85 05/15/22 23:12 155/79 H 05/15/22 21:57 36.7 C 72 20 116/66 O2 Del Method 05/16/22 04:36 Room Air 05/16/22 01:35 Room Air 05/16/22 01:09 05/16/22 00:41 05/16/22 00:11 05/15/22 23:56 05/15/22 23:41 05/15/22 23:26 05/15/22 23:12 05/16/22 01:09 05/16/22 00:41 05/16/22 00:26 05/16/22 00:11 05/15/22 23:56 05/15/22 23:56 05/15/22 23:41 05/15/22 23:41 05/15/22 23:26 05/15/22 23:26 05/15/22 23:12 05/15/22 23:12 05/15/22 21:57 <Linda Christie MD, FACOG - Last Filed: 05/16/22 07:48> Co-Signing Physician Notes Resident Physician Supervision Note: I was present with Dr. Gould during the history and exam. I discussed the case with the resident and agree with the findings and plan as documented in the note. Any exceptions or clarifications are listed here: doing well this am. eating, voiding, ambulating. not sure she is emptying with voids. abd soft ff 2 down nt, ext nt calves. ppd#1 s/p , stable routine care. rhpos/Ri/. will watch her voids and alert nursing if does not feel she is emptying. Documented By: Linda Christie MD, FACOG Resident Activity Tracking <Dena Gould, DO - Last Filed: 05/16/22 07:23> Resident Involvement: Resident Care Provided Care Provided: OB Delivery (Post )
[2022-05-16] MEDS: DOCUSATE SODIUM 100 MG CAP PO SCH ×2 (09:00→20:46)
[2022-05-16] MEDS: PRENATAL VITAMIN 1 TAB PO SCH (19:51)
--- NOTE | 2022-05-17 06:08 | Obstetrical Progress Note ---
Date of Service <Dena Gould - Last Filed: 05/17/22 07:06> May 17, 2022 Assessment & Plan <Dena Gould - Last Filed: 05/17/22 07:06> (1) Status post vaginal delivery: continue OOB, ambulation, diet as tolerated Post f/u in 6 weeks Discharge instructions reviewed <Quinton Uribe MD, FACOG - Last Filed: 05/17/22 07:18> (1) Status post vaginal delivery: Subjective <Dena Gould - Last Filed: 05/17/22 07:06> Eli is a 47 y/o female [id number] is now PPD #2 following spontaneous vaginal delivery at 38 5/7 weeks. Reports feeling well overall this morning. Mild abdominal cramping pain well managed on analgesics. Voiding. Tolerating meals overnight and able to ambulate some. Some persistent lochia with some im provement this morning. . Review of Systems Denies fever, chills, sweats Denies shortness of breath, difficulty breathing, chest pain, palpitations, chest pressure. Denies breast pain. Denies dysuria. Denies headache or changes in vision. Physical Exam <Denabashir GouldDO - Last Filed: 05/17/22 07:06> General: Alert, oriented. No acute distress. Cardiac: Regular rate and rhythm, no murmurs/rubs/gallops. Respiratory: Clear to auscultation bilaterally a/p, no wheezes/rales/rhonchi. No increased work of breathing. Symmetrical chest rise. No respiratory distress. Uterus: Uterine fundus firm, palpable 3 cm below umbilicus. Lower Extremities: No lower extremity edema or swelling. No deep calf pain. Results & Data ([facility]) <Dena FryeOlivier Luis FernandoDO - Last Filed: 05/17/22 07:06> Vital Signs (Past 12 Hours) Vital Signs Temp Pulse Resp BP 05/16/22 23:40 36.5 C 61 18 107/67 05/16/22 19:00 36.7 C 66 18 104/64 <Quinton Uribe MD, FACOG - Last Filed: 05/17/22 07:18> Co-Signing Physician Notes Resident Physician Supervision Note: I was present with Dr. Gould during the history and exam. I discussed the case with the resident and agree with the findings and plan as documented in the note. Any exceptions or clarifications are listed here: [None] Documented By: Quinton Uribe MD, FACOG Resident Activity Tracking <Dena Gould, DO - Last Filed: 05/17/22 07:06> Resident Involvement: Resident Care Provided Care Provided: OB Delivery (Post )
[2022-05-17] MEDS: IBUPROFEN 600 MG TAB PO PRN (06:45)
[2022-05-17] MEDS: PRENATAL VITAMIN 1 TAB PO SCH (10:00)
[2022-05-17] MEDS: DOCUSATE SODIUM 100 MG CAP PO SCH (10:01)
[2022-05-18] MEDS ORDERED: bisacodyL 10 MG SUPP PR PRN (00:11)
== END 2022-05-17 11:30 | disposition home or self-care (01) | DRG 807 ==
LOC: OPB 21:40 → 4S1 21:48 → 4E2 05-16 01:42